=== PATIENT | female | born 1960 | race Hispanic/Latino ===

== ENCOUNTER 2016-06-11 12:05 | Day surgery (SDC) | payer OTHER ==
[2016-06-11] VITALS (8 sets, daily range): BP systolic 118–153; BP diastolic 56–82; PULSE 78–97; RESP 6–19; O2SAT 97–100
[~2016-06-11] VITALS: Ht 147.3 cm; Wt 66.0 kg
--- NOTE | 2016-06-11 07:14 | PCM.HPANE ---
Patient Data Surgeon Admitting Provider: Attending Provider:Gonzalo Hess MD Primary Care Physician:Rosa Oliver MD Other Provider:[facility] Reason for Visit Menorrhagia Ht/WT & BMI Height (Feet): 4 Height (Inches): 10 Weight (Kilograms): 67.13 Body Mass Index 31.00 Allergies Coded Allergies: No Known Allergies (Unverified , 06/10/16) Past Anesthesia History Anesthesia History: Denies:: Anesthesia Reactions Medications Reported Medications Cholecalciferol (Vitamin D3) (Vitamin D3)2,000 Unit Tablet2,000 Unit PO DAILY 06/10/16 Cyanocobalamin (Vitamin B12)500 Mcg Tablet1,000 Mcg PO DAILY 06/10/16 Ferrous Gluconate 324 Mg [id number] Mg PO DAILY Ref 0 06/10/16 History History of ENT Problems?: No Hx of Heart Problems?: No Hx of Respiratory Problem?: No Respiratory History: Denies:: Oxygen Administration Use of C-PAP Machine Hx Neurologic Problems?: No Hx of GI Problems?: No Hx of Problems?: No Female Hx: Denies:: Currently (tubal) Hx Musculoskeletal Problems?: No Hx of Psycho/Social Problems?: No Hx Surgeries?: Yes (tubal ligation) Hx Any Other Health Problems?: Yes Other History: Denies:: Thyroid Disease Hx Alcohol Use: NoHx Substance Use: No Stop/Bang B- Body Mass Index > 35 kg/m2: No A- Age over 50: No N- Neck Large Circumference: No G- Gender Male: No LYNN Risk Assessment: Low Risk, <3 Yes Risk Assessment Category Category 1A: Patient has history of documented sleep apnea, and HAS NOT received any narcotic, sedative or anesthesia administration during this stay. Category 1B: Patient has history of documented sleep apnea, and HAS received any narcotic , sedative or anesthesia administration during this stay Category 2: Patient has SUSPECTED Obstructive Sleep Apnea, and HAS received any narcotic , sedative or anesthesia administration during this stay. Category 3: Patient has SUSPECTED Obstructive Sleep Apnea and HAS NOT received narcotic, sedative or anesthesia administration during this stay. Category 4: Outpatient in Procedural Areas with known sleep apnea or who screen positive for High Risk via the STOP/BANG questionnaire. Exam Exam General Appearance: Alert, Oriented X3, Cooperative, No Acute Distress HEENT/AIRWAY: MP 2 Lungs: Clear to Auscultation, Normal Air Movement Heart: Exam Unremarkable, Regular Rate/Rhythm, No Murmurs/Rubs/Gallops Plan Impression Patient chart reviewed, patient interviewed and anesthestic plan with risks, benefits, and alternatives discussed, and informed consent obtained. ASA Physical Status: ASA2 Mod Systemic Disease Anesthetic Plan: GA Bene/Risks/Altern/Consents: Yes HP Complete Prior to Induction: Yes Naif Leung MD Jun 11, 2016 07:14
[~2016-06-11 12:05] MED LIST: CHOL200025 PO; CYAN500 PO; FERR325T20 PO
[2016-06-11] MEDS ORDERED: fentaNYL-PF 50 mCg/mL 2 mL Inj ONE (12:06)
[2016-06-11] MEDS ORDERED: Propofol 10,000 mCg/mL 20 mL Inj ONE (12:06)
[2016-06-11] MEDS ORDERED: Ondansetron 2 mg/mL 2 mL Inj ONE (12:06)
[2016-06-11] MEDS ORDERED: Dexamethasone 4 mg/mL Inj ONE (12:06)
[2016-06-11] MEDS: Lactated Ringer's 1,000 ML IV SCH ×2 (12:18→14:02)
[2016-06-11] MEDS ORDERED: Lactated Ringer's 500 ML IV PRN (14:13)
[2016-06-11] MEDS ORDERED: Lactated Ringer's 1,000 ML IV SCH (14:13)
[2016-06-11] MEDS ORDERED: Labetalol 5 mg/mL 4 mL Inj IV PRN (14:15)
[2016-06-11] MEDS ORDERED: Atropine 0.4 mg/mL Inj IVPUSH PRN (14:15)
[2016-06-11] MEDS ORDERED: EPHEDrine Sulfate 50 mg/mL Inj IVPUSH PRN (14:15)
[2016-06-11] MEDS ORDERED: Phenylephrine 10,000 mCg/mL Inj IVPUSH PRN (14:15)
[2016-06-11] MEDS ORDERED: HYDROmorphone 1 mg/mL Inj IVPUSH PRN (14:15)
[2016-06-11] MEDS ORDERED: MetoCLOpramide 5 mg/mL 2 mL Inj IVPUSH PRN ×2 (14:15→14:55)
[2016-06-11] MEDS ORDERED: Dexamethasone 4 mg/mL Inj IVPUSH PRN (14:15)
[2016-06-11] MEDS ORDERED: Ondansetron 2 mg/mL 2 mL Inj IVPUSH PRN (14:15)
[2016-06-11] MEDS ORDERED: fentaNYL-PF 50 mCg/mL 2 mL Inj IVPUSH PRN (14:15)
[2016-06-11] MEDS ORDERED: diphenhydrAMINE 25 mg Capsule PO PRN (14:55)
[2016-06-11] MEDS ORDERED: oxyCODONE-Acetamin 5-325 mg Tablet PO PRN (14:55)
--- NOTE | 2016-06-11 15:04 | PCM.ANEP2 ---
Post Anesthesia Evaluation ASA/CMS Post Anesthesia VS in Patient's Normal Range?: Yes Resp Stable; Airway Patent?: Yes CV Function & Hydration Stable: Yes Mental Status Recovered?: Yes Pain control Satisfactory?: Yes N/V Control Satisfactory?: Yes Naif Leung MD Jun 11, 2016 15:04
--- NOTE | 2016-06-11 15:04 | PCM.ANEP1 ---
Post Anesthesia Phase 1 PACU Phase 1 Assessment Vital Signs Vital Signs Date Time Temp Pulse Resp B/P Pulse Ox O2 Delivery O2 Flow Rate FiO2 06/11/16 15:00 36.2 97 11 133/67 100 Simple Mask 7 06/11/16 14:55 89 6 132/62 100 Simple Mask 7 06/11/16 14:50 80 18 128/68 98 Simple Mask 7 06/11/16 14:47 36.4 118/56 06/11/16 12:27 36.8 78 16 149/65 98 Room Air Anesthetic Administered: GA Level of Alertness: Awake, talking GONZALEZ's with Equal Strength: No Pain: No Nausea or Vomiting: No Oxygen Delivery: Simple Mask Lungs: Clear to Auscultation, Normal Air Movement Naif Leung MD Jun 11, 2016 15:04
--- NOTE | 2016-06-12 02:18 | OP ---
[address] [address] OPERATIVE REPORT PATIENT: ELIZABETH CLARK : 1960 MR#: [id number] ADMIT: 06/11/2016 JOB ID: [id number] DATE OF SURGERY: 06/11/2016 PREOPERATIVE DIAGNOSIS(ES): A 55-year-old 7, para 7 with menorrhagia, thick endometrial stripe at 22 mm on ultrasound. Opted to proceed with hysteroscopy, dilation and curettage. POSTOPERATIVE DIAGNOSIS(ES): A 55-year-old 7, para 7 with menorrhagia, thick endometrial stripe at 22 mm on ultrasound. Opted to proceed with hysteroscopy, dilation and curettage. PROCEDURE: Hysteroscopy, dilation and curettage. SURGEON: Gonzalo Hess MD. DIRECT CARE PROVIDER: Amy Quijano MD. ANESTHESIA: General endotracheal. ESTIMATED BLOOD LOSS: 30 cc. INTRAVENOUS FLUIDS: 600 cc of crystalloid. URINE OUTPUT: 200 cc of clear urine at the beginning of the procedure. PACKS: None. DRAINS: None. CATHETERS: None. SPECIMEN REMOVED: Cervical curettage and endometrial curettage, both sent to pathology as two different specimens. HYSTEROSCOPY DISTENTION MEDIA: Normal saline deficit at the end of the procedure for hysteroscopy distention media, was 300 cc. FINDINGS: A. Examination under anesthesia: A 14 week sized anteverted uterus. No adnexal masses appreciated bilaterally. B. Hysteroscopic findings: 1. Visualized tubal ostia bilaterally. 2. No masses or fibroids observed. 3. Two endometrial polyps observed, both broad-based. The first one was around 1 x 0.5 cm at five o'clock position on the left sidewall of the endometrium close to the left tubal ostia. The second polyp was smaller, around 0.5 x 0.3 cm caudal to the prior one, located at four o'clock position. Both polyps were confirmed to be removed after second look with hysteroscopy after the curettage. Uterus sounded to 10 cm with uterine sound. PROCEDURE: Risks, benefits and alternatives of the procedure discussed with the patient. Informed consent signed. The patient moved to the OR with IV running. After general anesthesia was found to be adequate, the patient was placed in dorsal lithotomy position. Examination under anesthesia revealed the above findings. Then, patient was prepped and draped in normal sterile fashion. In-and-out sterile catheter retrieved 200 cc of clear urine. A weighted speculum was inserted into the patient's vagina and the anterior lip of the cervix was grasped with a single-tooth tenaculum. Uterus sounded to 10 cm with the uterine sound. The cervix was dilated up to Hegar dilator #6. The MyoSure hysteroscope was introduced into the patient's uterus with normal saline as distention media. Under direct visualization the above findings were noted. Pictures were taken. The scope was removed and sharp curettage started with cervical curettage, followed by endometrial curettage. A second look with the hysteroscope confirmed complete removal of both polyps with adequate endometrial curettage. All instruments removed from patient's uterus. Hemostasis assured, including the single-toothed tenaculum insertion. Patient tolerated the procedure well. Sponge and instrument counts were correct x2. The patient moved to recovery in a stable condition. Dr. Hess was present and scrubbed for the entire procedure. BRIGITTE
--- NOTE | 2016-06-15 13:19 | PATH ---
SURGICAL PATHOLOGY Attending Physician:Gonzalo Hess MD CASE STATUS: Signed Out PATIENT NAME: ELIZABETH CLARK PID: [id number] : 1960 DATE COLLECTED:06/11/2016 00:00 SPECIMEN: 1: Endocervix, Curettage 2: Endometrium, Curettage CLINICAL HISTORY: MENORRHAGIA 1). ENDOCERVICAL CURETTING, OUT 14:31 TIF 14:33 2). ENDOMETRIAL CURETTING, OUT 14:33 TIF 14:34 FINAL DIAGNOSIS: 1. Endocervical Curettings: Fragments of endocervical tissue, negative for atypia. 2. Endometrial Curettings: Disordered proliferative endometrium with changes of glandular and stromal breakdown, negative for atypia. Tissue fragments consistent with benign endometrial polyp, negative for atypia. ICD10 N92.0 GROSS DESCRIPTION: The specimen is received in two formalin filled containers labeled with the patient's name. 1). The specimen is sublabeled "endocervical curetting" and consists a 0.25 cc aggregate of mucoid material and blood which is filtered and entirely submitted in cassette 1A. 2). The specimen is sublabeled "endometrial curetting" and consists of a approximately a 1.5 cc aggregate of tissue, mucoid material and blood which is filtered and entirely submitted in cassette 2A. 06/12/2016 [facility] ICD-9 CODES: CPT CODES: 1: 29357 2: 92604 Electronically Signed Out Darrel Brody MD [facility] [address], [place] [address] Technical component performed at [facility], [facility] [address], [address]
== END 2016-06-11 23:59 | disposition home or self-care (01) ==
LOC: SAS 12:05
PROVIDERS: ATTEND Obstetrics & Gynecology
DX: N92.0 Excessive and frequent menstruation with regular cycle (principal); R93.8 Abnormal findings on diagnostic imaging of other specified body structures
CPT/HCPCS: 58558; 88305; J1100; J2250; J2405; J3010; J7120